=== PATIENT | female | born 1955 | race Hispanic/Latino ===

== ENCOUNTER 2022-02-14 09:40 | Outpatient (CLI) | payer MEDICARE, BC ==
[2022-02-14 11:05] LABS: Blood Urea Nitrogen 14 mg/dL (7-17)
--- NOTE | 2022-02-14 13:46 | Cat Scan Report ---
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 TECHNIQUE: Axial CT images were obtained through the abdomen, pelvis and lower extremities after inje ction of 100 cc of Omnipaque 350 IV contrast. 3 plane MIP / 3D reconstructions were produced. All CT scans at this location are performed using CT dose reduction for ALARA by means of automated exposure control. COMPARISON: None available. FINDINGS: CTA ABDOMEN: Abdominal Aorta: There is mild to moderate atherosclerotic calcification without hemodynamically sign ificant stenosis or aneurysm. Celiac Artery: There is stenosis in the origin of the celiac artery which results in greater than 50% diameter reduction in poststenotic dilatation is likely hemodynamically significant. Superior Mesenteric Artery: There is mild plaque without hemodynamically significant stenosis. Right Renal Artery: There are 2 right renal arteries without hemodynamically significant stenosis rose ntified. Left Renal Artery: There are 2 left renal arteries. The superior is the largest dominant artery. Ther e is plaque at the origin of the dominant artery without hemodynamically significant stenosis identi fied. Inferior Mesenteric Artery: There is moderate calcific plaque in the proximal inferior mesenteric art yosef. CTA PELVIS: RIGHT: - Common Iliac Artery: There is severe plaque in the common iliac artery with severe stenosis. - Internal Iliac Artery: There is severe plaque with severe stenoses proximally. - External Iliac Artery: There is moderate plaque without discrete hemodynamically significant stenos is. The vessel is small. LEFT: - Common Iliac Artery: There is moderate to severe plaque in the left common iliac artery with an kaye roximate 40-50% diameter reduction stenosis distally. - Internal Iliac Artery: There is relatively severe plaque with stenoses that appear hemodynamically significant. - External Iliac Artery: There is moderate plaque without discrete hemodynamically significant stenos is. CTA LOWER EXTREMITIES: RIGHT LOWER EXTREMITY: - Common Femoral Artery: There is moderate plaque with less than 50% diameter reduction stenosis. - Superficial Femoral Artery: There is mild scattered plaque. There is severe plaque in the distal oro perficial femoral artery with severe stenosis which is likely hemodynamically significant. - Profunda Femoral Artery: Mild plaque without hemodynamically significant stenosis identified. - Popliteal Artery: Mild plaque without significant stenosis. - Anterior Tibial Artery: There is multifocal plaque in the proximal anterior tibial artery with sten osis proximally which may be hemodynamically significant. - Tibioperoneal Trunk: There is severe plaque in the tibioperoneal trunk stenosis that is likely hemo dynamically significant. - Posterior Tibial Artery: Not opacified and appears to be occluded proximally. - Peroneal Artery: There is scattered plaque in the proximal peroneal artery. The vessel is patent to the ankle. - Ankle runoff: 2 vessel. Both vessels show proximal plaques which may be hemodynamically significant . LEFT LOWER EXTREMITY: - Common Femoral Artery: There is mild plaque with a less than 50% diameter reduction stenosis. - Superficial Femoral Artery: There is scattered plaque in the distal half of the vessel with stenose s less than 50% diameter reduction. - Profunda Femoral Artery: No significant abnormality. - Popliteal Artery: Mild plaque without significant stenosis. - Anterior Tibial Artery: There is scattered plaque in the anterior tibial artery with multiple steno ses. The vessel is patent to the ankle. - Tibioperoneal Trunk: There is severe plaque with greater than 50% diameter reduction stenosis. - Posterior Tibial Artery: Vessel is small and is opacified to the distal calf. - Peroneal Artery: There is mild plaque proximally. Vessels patent to the ankle - Ankle runoff: 2 vessel is the anterior tibial and peroneal arteries.. The posterior tibial artery i s opacified to the distal calf NONTARGET STRUCTURES: ABDOMEN:There are nodular densities in the right middle lobe measuring up to 9 mm, series 2 image 45. The liver, spleen, pancreas, adrenal glands, and kidneys show no acute abnormality. There is no adeno sidra. The bowel is unremarkable. PELVIS:No acute abnormality seen in the pelvis. There is no adenopathy. No mass lesions are seen. LOWER EXTREMITIES:No acute abnormality is seen. SKELETAL: Prior vertebroplasty at L2 is noted. There are degenerative changes noted in the imaged spi ne. No acute abnormality is seen. ADDITIONAL FINDINGS: None. IMPRESSION: 1. There is relatively moderate to severe atherosclerotic disease most severe in the common iliac ves sels and proximal runoff vessels . Stenoses in the common iliac vessels (right greater than left) are likely hemodynamically significant. Stenoses described above in the runoff vessels are also likely c linically significant. Multiple incidental pulmonary nodule(s) in the right middle lobe measuring up to 9 mm with solid galileo acteristics. Recommendation according to Fleischner Society 2017 Guidelines: Low Risk Patient: CT at 3-6 months, then consider CT at 18-24 months; High Risk Patient: CT at 3-6 months, then CT at 18-[address] [facility]. Signer Name: Joshua Kyle MD Signed: 02/14/2022 1:42 PM Workstation Name: [id number]
== END 2022-02-14 09:41 | disposition home or self-care (01) ==
LOC: CT 09:40
PROVIDERS: ATTEND Radiology Diagnostic Radiology
DX: I70.213 Atherosclerosis of native arteries of extremities with intermittent claudication, bilateral legs (principal); I70.0 Atherosclerosis of aorta; R91.8 Other nonspecific abnormal finding of lung field; I77.1 Stricture of artery
CPT/HCPCS: 36415; 75635; 82565; 84520; Q9967

== ENCOUNTER 2022-05-16 08:05 | Day surgery (SDC) | payer MEDICARE, BC ==
--- NOTE | 2022-05-16 08:42 | Anesthesia Day of Surgery ---
Anesthesia Day of Surgery - Day of Surgery Patient Examined: Yes Patient H&P Reviewed: Yes Patient is NPO: Yes
--- NOTE | 2022-05-16 08:44 | Anesthesia Consultation ---
Anesthesia Consult and Med Hx Date of service: 05/16/22 - Airway Anesthetic Teeth Evaluation: Partials ROM Head & Neck: Adequate (Had ACDF 11/2021) Mental/Hyoid Distance: Adequate Mallampati Class: Class II Intubation Access Assessment: Probably Good - Pre-Operative Health Status ASA Pre-Surgery Classification: ASA3 Proposed Anesthetic Plan: MAC (GA if needed) - Pulmonary Hx Smoking: Yes Hx Respiratory Symptoms: Yes (Had CHAD lobectomy 09/2021) SOB: Yes COPD: Yes Hx Sleep Apnea: No - Cardiovascular System Hx Hypertension: Yes Hx Heart Attack/AMI: No (Pt reports getting cardiac clearance for neck surgery) Hx Cardia Arrhythmia: Yes (Tachy) - Central Nervous System Hx Back Pain: Yes Hx Psychiatric Problems: Yes (Anxious) - Gastrointestinal Hx Gastroesophageal Reflux Disease: Yes - Endocrine Hx Insulin Dependent Diabetes: Yes (Off meds since 60 pound weight loss) - Other Systems Hx Cancer: Yes Hx Obesity: No
[2022-05-16] MEDS ORDERED: SODIUM CHLORIDE 0.9% 1000 ML 1,000 ML IV SCH (08:45)
[2022-05-16 08:55] LABS: Hematocrit 23.9 % (30.3-42.9); Hemoglobin 7.7 gm/dl (10.1-14.3); Mean Corpuscular HGB Conc 32 % (30-34); Mean Corpuscular Volume 74 fl (79-97); Platelet Count 441 K/mm3 (140-440); Red Blood Count 3.23 M/mm3 (3.65-5.03); Red Cell Distribution Width 18.7 % (13.2-15.2)
[2022-05-16 09:16] LABS: INR 0.89 (0.87-1.13); Partial Thromboplastin Time 28.2 Sec. (24.2-36.6)
[2022-05-16 09:17] LABS: Blood Urea Nitrogen 14 mg/dL (7-17); Calcium 9.4 mg/dL (8.4-10.2); Hemolysis Index 72
[2022-05-16 09:26] LABS: BUN/Creatinine Ratio 28
[2022-05-16] MEDS ORDERED: LIDOCAINE MPF (2%) 20 MG/1 ML VIAL 5 ML ONE (09:34)
[2022-05-16] MEDS ORDERED: MIDAZOLAM 2 MG/2 ML INJ ONE (09:34)
[2022-05-16] MEDS ORDERED: HYDROmorphone 1 MG/1 ML INJ ONE (09:34)
[2022-05-16] MEDS ORDERED: HEPARIN 10,000 UNITS/10 ML VIAL ONE (10:02)
[2022-05-16] MEDS ORDERED: HEPARIN/NS 5000 UNIT/500ML 1,500 ML IR ONE (10:02)
[2022-05-16] MEDS: LIDOCAINE 2%/EPINEPHRINE 1:200,000 VIAL (20 ML) INFILTRATI ONE ×2 (10:25→10:34)
[2022-05-16] MEDS ORDERED: ceFAZolin/Water 2 GM/20 ML 2 GM/20 ML SYRINGE IV ONE (10:25)
--- NOTE | 2022-05-16 11:54 | Short Stay Summary ---
Short Stay Documentation Date of service: 05/16/22 Narrative H&P: 66-year-old female who presents with critical limb ischemia of the right lower extremity with rest pain and previous nonhealing wound of the right foot who presents with recurrent rest pain. Risk, benefits, and alternatives discussed regarding revascularization. Patient agrees with procedure. - History Principal diagnosis: Rest pain of the right lower extremity H&P: obtained from office - Allergies and Medications Current Medications: Allergies sumatriptan [From Imitrex] Allergy (Verified 05/16/22 08:59) Shortness of Breath Home Medications Medication Instructions Recorded Confirmed Last Taken Type Diclofenac 75 mg PO BID 05/16/22 05/16/22 05/16/22 06:00 History FLUoxetine [PROzac] 2 tab PO HS 05/16/22 05/16/22 05/15/22 21:00 History Gabapentin 300 mg PO 4XD 05/16/22 05/16/22 05/16/22 06:00 History Omeprazole 20 mg PO DAILY 05/16/22 05/16/22 05/16/22 06:00 History Ondansetron [Zofran ODT TAB] 4 mg PO PRN PRN 05/16/22 05/16/22 05/16/22 06:00 History cilostazoL 100 mg PO BID 05/16/22 05/16/22 05/16/22 06:00 History oxyCODONE /ACETAMINOPHEN 7.5 mg PO TID 05/16/22 05/16/22 05/16/22 06:00 History Active Medications Sodium Chloride (Nacl 0.9% 1000 Ml) 1,000 mls @ 25 mls/hr IV DIRECT MAURICIO Stop: 05/16/22 20:00 Last Admin: 05/16/22 09:13 Dose: 25 mls/hr - Physical exam General appearance: no acute distress Lungs: Normal air movement Extremities: normal temperature, normal color, abnormal (Dopplerable pulses) - Brief post op/procedure progress note Date of procedure: 05/16/22 Pre-op diagnosis: Rest pain of the right lower extremity Post-op diagnosis: same Procedure: 1. Ultrasound-guided access of the right common femoral artery. 2. Angiography of the right lower extremity. 3. Selection of the abdominal aorta with angiography. 4. Ultrasound-guided access of the left common femoral artery. 5. Angiography of the left lower extremity. 6. Lithoplasty of the right common iliac artery with a 6 mm x 60 mm shockwave balloon. 7. Lithoplasty of the right external iliac artery with a 6 mm x 60 mm shockwave balloon 8. Intravascular ultrasound of the distal aorta, right common iliac artery, and right external iliac artery 9. Angioplasty of the right common iliac artery, and external iliac artery with a 6 mm x 150 mm angioplasty balloon 10. Closure of the left common femoral artery with 6 Khmer Pro style 11. Closure of the right common femoral artery with manual compression Anesthesia: MAC Surgeon: LO YU Estimated blood loss: minimal Condition: stable - Hospital course Hospital course: Patient tolerated the procedure well. No immediate postprocedural complications. Kept flat for 4 hours. Bilateral compression bandages of the groins intact. Discussed medication with patient. Needs to switch omeprazole to pantoprazole. Plavix and aspirin. Can discontinue cilostazol. - Disposition Condition at discharge: Stable Disposition: 01 HOME / SELF CARE / HOMELESS - Discharge Diagnoses (1) Atherosclerosis of right lower extremity with rest pain Status: Acute (2) Atherosclerosis of both lower extremities with intermittent claudication Status: Acute (3) Chronic back pain greater than 3 months duration Status: Acute Short Stay Discharge Plan Activity: advance as tolerated (Do not lift more than 10 pounds for the next w [facility]) Weight Bearing Status: Weight Bear as Tolerated Diet: regular Wound: keep clean and dry (Can remove pressure dressing on 05/17/2022 in a.m. ; do not lift more than 10 pounds for 1 week.) Follow up with: LANDON XAVIER MD [Primary Care Provider] - 7 Days Prescriptions: Pantoprazole Sodium 20 mg PO DAILY 90 Days #90 tab Clopidogrel [Plavix] 75 mg PO QDAY 90 Days #90 tablet
[2022-05-16] MEDS ORDERED: CLOPIDOGREL 300 MG TAB PO NR (12:06)
--- NOTE | 2022-05-16 12:15 | Operative Report ---
Operative Report Operative Report: EXAM: 1. Ultrasound-guided access of the right common femoral artery. 2. Angiography of the right lower extremity. 3. Selection of the abdominal aorta with angiography. 4. Ultrasound-guided access of the left common femoral artery. 5. Angiography of the left lower extremity. 6. Lithoplasty of the right common iliac artery with a 6 mm x 60 mm shockwave balloon. 7. Lithoplasty of the right external iliac artery with a 6 mm x 60 mm shockwave balloon 8. Intravascular ultrasound of the distal aorta, right common iliac artery, and right external iliac artery 9. Angioplasty of the right common iliac artery, and external iliac artery with a 6 mm x 150 mm angioplasty balloon 10. Closure of the left common femoral artery with 6 Martiniquais Pro style 11. Closure of the right common femoral artery with manual compression DATE: 05/16/2022 LEAD [employer] DEVELOPER ARCHITECT: LO YU MD INDICATION: Atherosclerosis of the bilateral lower extremities with intermittent claudication and atherosclerosis of the right lower extremity with rest pain and previous nonhealing ulceration. MEDICATIONS: Please see nursing report for full details. DEVICES: Please see procedure note above. CONTRAST: Please see [facility] surgery operative. PROCEDURE: The risks, benefits, and alternatives were discussed with the patient; written informed consent was obtained. The patient was brought to the [facility] and prepped and draped in a sterile fashion. Both groins were prepped and draped in a sterile fashion. Ultrasound was used to evaluate the right common femoral artery and the lower portion of the artery was patent. The rest of the artery had significant plaque within it. Under direct ultrasound guidance, the lower portion of the right common femoral artery was accessed with a 21-gauge micropuncture needle. 0.018 inch wire was passed into the iliac artery. Needle was exchanged for transitional dilator. Wire was exchanged for 0.035 inch wire. Transitional dilator was exchanged for 5 Martiniquais sheath. Digital subtraction angiography was performed demonstrating the puncture was appropriate, immediately above the level of the bifurcation and below the inferior epigastric artery. The abdominal aorta had 20 to 30% stenosis. The right common iliac artery had a 99% stenosis. The mid to distal common iliac artery had a 90% stenosis. The right proximalmost external iliac artery had a 30 to 40% stenosis. The right internal iliac artery was patent. The right mid and distal external iliac artery had diffuse 60% narrowing, possibly from being underfilled. The right upper and mid common femoral artery had a diffuse 60% stenosis. The right profunda femoral artery was patent. The right proximal superficial femoral artery was patent. The patient was heparinized. Wiring catheter used to select the right common iliac artery. Wire and catheter were then used to easily negotiate through the 99% stenosis and into the aorta. Digital subtraction angiography was performed confirming position. 0.035 inch wire was passed into the aorta. Ultrasound was used to evaluate the left common femoral artery. The left common femoral artery was patent. Under direct ultrasound guidance, the left common femoral artery was accessed with a 21-gauge micropuncture needle. 0.018 inch wire was passed into the iliac artery. Needle was exchanged for transitional dilator. Wire was exchanged for a 0.035 inch wire. Transitional dilator was exchanged for 5 Martiniquais sheath. Digital subtraction angiography was performed demonstrating the puncture was appropriate, above the left femoral bifurcation and below the inferior epigastric artery. The abdominal aorta had a 20 to 30% stenosis. The left common iliac artery had a mid 50% stenosis with a mid area of iliac artery ectasia. Left internal iliac artery, external iliac artery, common femoral artery, profundofemoral artery, and proximal superficial femoral artery were all patent. 0.035 inch wire was used to cross the iliac arteries and enter the aorta. This was selected with the catheter and digital subtraction angiography was performed confirming position. 0.035 inch wire was then passed centrally. Both sheaths were then upsized to 7 Martiniquais sheaths. The right femoral access was then exchanged for a 0.014 inch wire. Shockwave lithoplasty was used to perform lithoplasty of the right common iliac artery and proximal external iliac artery with a 6 mm x 60 mm angioplasty balloon. Digital subtraction angiography was performed demonstrating an excellent result with minimal residual stenosis. I was surprised how good the stenotic lesion looked after lithoplasty, and due to the small vessel size that the patient had, I considered leaving this as a final result. I then performed intravascular ultrasound of the distal aorta demonstrating a 20% stenosis, right common iliac artery demonstrating a vessel size of 5 to 6 mm at its most stenot ic residual area with residual 30% stenosis, and less than 20% stenosis of the right proximal external iliac artery. Given the patient's small vessel size in general, I decided against stenting at this time, and will treat with angioplasty and subsequently reassess her iliac arteries. 6 mm x 150 mm iNPACT balloon was used to perform angioplasty of the right common iliac artery and external iliac artery. Digital subtraction angiography demonstrated less than 10% residual stenosis, although the intravascular ultrasound demonstrated some more stenosis. The left common femoral artery access was obtained in order to place kissing stents, but now that kissing stents were not needed, the site was closed with a 6 Martiniquais Pro style. The right common femoral artery access was then removed and pressure was held until hemostasis was achieved. Patient had a palpable right femoral pulse. Patient tolerated the procedure well. No immediate postprocedural complications. FINDINGS: Please see procedure note above IMPRESSION: Successful lipoplasty and angioplasty of the right common iliac artery. Successful lipoplasty and angioplasty of the right external iliac artery. Successful selection of the abdominal aorta with angiography. Successful ultrasound-guided access of the left common femoral artery with Pro- glide assisted closure. Successful ultrasound-guided access of the right common femoral artery with manual compression closure.
[2022-05-16] MEDS ORDERED: ASPIRIN 81 MG TAB CHEW PO SCH (13:00)
[2022-05-16] MEDS ORDERED: ALUM-MAG HYDROXIDE-SIMETHICONE 200-200-20MG/5ML ORAL LIQD 30 ML ONE (13:37)
--- NOTE | 2022-05-16 14:07 | Post Anesthesia Evaluation ---
- Post Anesthesia Evaluation Patient Participated: Yes Airway Patent: Yes Stable Respiratory Function: Yes Nausea/Vomiting: No Temp > 96.8F: Yes Pain Manageable: Yes Adequeate Hydration: Yes Anesthesia Complications: No Block Receding Appropriately: Not Applicable Patient on Ventilator: No
[2022-05-16] MEDS ORDERED: HYDROcodone/ACETAMINOPHEN 5-325 MG TAB PO ONE (16:00)
[2022-05-16 16:24] VITALS: BP 111/59
== END 2022-05-16 08:06 | disposition home or self-care (01) ==
LOC: CATHLABREC 08:05
PROVIDERS: ATTEND Radiology Diagnostic Radiology
DX: I70.235 Atherosclerosis of native arteries of right leg with ulceration of other part of foot (principal); I70.221 Atherosclerosis of native arteries of extremities with rest pain, right leg; I70.213 Atherosclerosis of native arteries of extremities with intermittent claudication, bilateral legs; E11.51 Type 2 diabetes mellitus with diabetic peripheral angiopathy without gangrene; I42.9 Cardiomyopathy, unspecified; I10 Essential (primary) hypertension; J44.9 Chronic obstructive pulmonary disease, unspecified; K21.9 Gastro-esophageal reflux disease without esophagitis; Z88.8 Allergy status to other drugs, medicaments and biological substances; Z79.899 Other long term (current) drug therapy; Z85.89 Personal history of malignant neoplasm of other organs and systems
CPT/HCPCS: 36415; 75625; 75716; 76937; 80048; 85027; 85610; 85730; C1725; C1753; C1760; C1769; C1894; C2623; C9764; J0690; J1170; J1644; J2250; J2704; J3490; J7030; Q9967